=== PATIENT | female | born 1995 | race Two or more races ===

== ENCOUNTER 2017-05-31 18:33 | Emergency (ER) | payer OTHER ==
[2017-05-31 18:50] VITALS: BP 128/83
--- NOTE | 2017-05-31 18:50 | PHYS DOC ---
Adult General Chief Complaint Chief Complaint: INSECT BITE HPI HPI Patient is a 22 year old F who presents with insect bites and a sore throat. Patient states that she was out in the field yesterday and sustained some insect bites to her left upper extremity. Patient states today she started having a sore throat with associated seasonal allergies. Patient's pro-office or recommend she come the emergency room for further evaluation and management. Patient denies any fevers. Patient complains of generalized body aches. Patient denies any shortness of breath or chest pain. Patient denies any nausea/vomiting /diarrhea. Patient has no other complaints. Review of Systems Review of Systems GEN: Denies fevers, chills, sweats HEENT: Sore throat CV: Denies chest pain RESP: Denies shortness of air, cough GI: Denies n/v/d NEURO: Denies confusion, dizziness MSK: Body aches SKIN: Intact bites Physical Exam Physical Exam GEN.: No apparent distress. Alert and oriented. HEENT: Head is normocephalic, atraumatic, pharynx is not erythematous tonsils are not swollen, TMs are clear bilaterally, the turbinates in both naris are not swollen NECK: Supple no cervical lymph adenopathy LUNGS: CTAB. HEART: RRR, S1, S2 present. Peripheral pulses intact ABDOMEN: Soft, nontender. Positive bowel sounds. EXTREMITIES: Without any cyanosis. NEUROLOGIC: Normal speech, normal tone PSYCHIATRIC: Normal affect, normal mood. SKIN: No ulcerations, to less than 1 mm insect bites to the left elbow that are not erythematous or swollen or tender to palpation EKG EKG [] Radiology/Procedures Radiology/Procedures [] Course & Med Decision Making Course & Med Decision Making Pertinent Labs and Imaging studies reviewed. (See chart for details) MDM: After reviewing the chart, CC/HPI/PMH, physical exam, I do not believe the patient has emergent medical condition warranting further workup and/or admission at this time. I believe the patient is stable for discharge. Recommended patient follow-up with her PCP in one to 2 days. Additional verbal discharge instructions were provided to the patient and that if symptoms get worse or any new symptoms arise that are worrisome to the patient she is to return to the emergency room immediately [] Dragon Disclaimer Dragon Disclaimer This chart was dictated in whole or in part using Voice Recognition software in a busy, high-work load, and often noisy Emergency Department environment. It may contain unintended and wholly unrecognized errors or omissions. Departure Departure: Impression: Primary Impression: Insect bite Additional Impression: Pharyngitis Disposition: HOME, SELF-CARE Condition: IMPROVED Patient Instructions: Insect Bite, [id number], Viral Infections, Gkki-[id number] Additional Instructions: Please follow up with her family doctor next one to 2 days Problem Qualifiers NEELA BARTHOLOMEW DO May 31, 2017 18:50
== END 2017-05-31 19:59 | disposition home or self-care (01) ==
LOC: ER 18:33
DX: S40.862A Insect bite (nonvenomous) of left upper arm, initial encounter (principal); J02.9 Acute pharyngitis, unspecified; W57.XXXA Bitten or stung by nonvenomous insect and other nonvenomous arthropods, initial encounter; Y93.89 Activity, other specified; Y99.8 Other external cause status; Y92.89 Other specified places as the place of occurrence of the external cause
CPT/HCPCS: 99281